=== PATIENT | female | born 1990 | race Caucasian/White ===

== ENCOUNTER → 2016-11-13 | Outpatient (CLI) | payer MEDICAID ==
[~2016-11-13] MED LIST: AUGM500T34 PO; CEFD1CAP8 PO; IBUP200C PO; MACR100C3 PO; MUCI600T34 PO; NICO21DI5 TD; NO HOME MEDS; No Home Meds; TYLE500T78 PO
== END ==
LOC: M OUTALCOH 13:12
PROVIDERS: ATTEND Psychiatry & Neurology Psychiatry
DX: F11.20 Opioid dependence, uncomplicated (principal); F12.20 Cannabis dependence, uncomplicated

== ENCOUNTER 2016-11-24 15:04 | Emergency (ER) | payer MEDICAID, OTHER ==
[~2016-11-24] VITALS: Ht 175.3 cm; Wt 64.9 kg
[2016-11-24 15:04] VITALS: BP 112/75
[2016-11-24] MEDS ORDERED: STRA80CA PO (15:13)
[2016-11-24] MEDS ORDERED: SERO200T PO (15:13)
[2016-11-24] MEDS ORDERED: EFFE75CA75 PO (15:13)
[2016-11-24] MEDS ORDERED: CYCL10TA PO (17:26)
[2016-11-24] MEDS ORDERED: CYCLOBENZAPRINE 10 MG TAB PO ONE (17:45)
== END 2016-11-24 17:43 | disposition home or self-care (01) ==
LOC: M ED 16:59
DX: S39.012A Strain of muscle, fascia and tendon of lower back, initial encounter (principal); X50.0XXA Overexertion from strenuous movement or load, initial encounter; Y92.89 Other specified places as the place of occurrence of the external cause; Y93.89 Activity, other specified; Y99.8 Other external cause status; B19.20 Unspecified viral hepatitis C without hepatic coma; F17.200 Nicotine dependence, unspecified, uncomplicated; Z91.030 Bee allergy status; Z79.899 Other long term (current) drug therapy

== ENCOUNTER 2016-11-26 16:00 | Outpatient (RCR) | payer MEDICAID ==
[~2016-11-26 16:00] MED LIST changes: +CYCL10TA PO; +EFFE75CA75 PO; +SERO200T PO; +STRA80CA PO
== END 2016-12-03 ==
LOC: M OUTALCOH 16:00
PROVIDERS: ATTEND Psychiatry & Neurology Psychiatry
DX: F11.20 Opioid dependence, uncomplicated (principal); F12.20 Cannabis dependence, uncomplicated

== ENCOUNTER 2017-09-07 15:18 | Emergency (ER) | payer MEDICAID, SELFPAY, OTHER ==
[2017-09-07 17:23] LABS: KETONE, URINE AUTO RFX TRACE mg/dL (NEGATIVE); LEUKOCYTE ESTERASE UR AUTO RFX NEGATIVE (NEGATIVE); MUCUS, URINE RFX SMALL (NEGATIVE); NITRITE, URINE AUTO RFX NEGATIVE (NEGATIVE); RBC, URINE AUTO RFX 1 /HPF (0-3); SPECIFIC GRAVITY UR AUTO RFX 1.012 (1.002-1.035); SQUAM EPITHELIAL CELL UR AURFX 2 /HPF (0-6); WBC, URINE AUTO RFX 0 /HPF (0-3)
[2017-09-07] MEDS: NORCO, ANEXSIA 5/325MG TABLET (HYDROcodone/ACETAMINOPHEN) PO (17:30)
[2017-09-07] MEDS: ONDANSETRON 4 MG ORAL DISINTEGRATING TAB (S0181) PO (17:30)
[2017-09-07] MEDS: FLUCONAZOLE 100 MG TAB PO (18:30)
[2017-09-07 19:04] LABS: CHLAMYDIA DNA AMPLIFICATION NEGATIVE (NEGATIVE); GC DNA AMPLIFICATION NEGATIVE (NEGATIVE)
== END 2017-09-07 18:41 | disposition home or self-care (01) ==
LOC: M ED 15:18
DX: N83.202 Unspecified ovarian cyst, left side (principal); B37.3 Candidiasis of vulva and vagina; B19.20 Unspecified viral hepatitis C without hepatic coma; F20.0 Paranoid schizophrenia; F17.210 Nicotine dependence, cigarettes, uncomplicated; Z91.030 Bee allergy status
CPT/HCPCS: 76856

== ENCOUNTER 2017-09-13 17:23 | Emergency (ER) | payer MEDICAID ==
[2017-09-13] MEDS: KETOROLAC 30 MG/ML VIAL (J1885) IM (18:04)
[2017-09-13] MEDS: traMADol 50 MG TAB (BULK 4 TAB ED) PO (20:34)
== END 2017-09-13 20:36 | disposition home or self-care (01) ==
LOC: M ED 17:23
DX: N83.292 Other ovarian cyst, left side (principal); F17.200 Nicotine dependence, unspecified, uncomplicated; R51 Headache; M54.5 Low back pain; Z86.19 Personal history of other infectious and parasitic diseases; F41.9 Anxiety disorder, unspecified; F32.9 Major depressive disorder, single episode, unspecified; F29 Unspecified psychosis not due to a substance or known physiological condition; F20.9 Schizophrenia, unspecified; Z91.030 Bee allergy status
CPT/HCPCS: J1885

== ENCOUNTER → 2017-11-16 | Outpatient (CLI) | payer MEDICAID | LOC: M OUTALCOH 11:00 | DX: Z13.9 Encounter for screening, unspecified (principal); F11.20 Opioid dependence, uncomplicated (principal) ==

== ENCOUNTER 2019-12-20 20:33 | Emergency (ER) | payer MEDICAID, SELFPAY ==
[~2019-12-20] VITALS: Ht 175.3 cm; Wt 63.6 kg
[~2019-12-20 20:33] MED LIST changes: +CYCL-707 PO; -CYCL10TA PO; +EFFE75CA2 PO; -EFFE75CA75 PO; +IBUP-1022 PO; -IBUP200C PO; +IBUP200C25 PO; -MACR100C3 PO; +MACR100C43 PO; -NICO21DI5 TD; +NICO21DI6 TD; +ULTR50TA8 PO
[2019-12-20] MEDS ORDERED: QUET200T2 PO (20:55)
[2019-12-20] MEDS ORDERED: BUPR15TASR PO (20:55)
[2019-12-20] MEDS ORDERED: TRAZ-257 PO (20:55)
[2019-12-20] MEDS ORDERED: NS 1,000 ML IV ONE (21:00)
[2019-12-20 21:30] VITALS: BP 110/80
[2019-12-20] MEDS ORDERED: ISOVUE-370 76% 100ML VIAL As Ordered ONE (22:06)
[2019-12-20 22:09] LABS: BASO # 0.1 10^3/uL (0.0-0.2); BASO % 1.4 % (0.0-1.0); EOS # 0.1 10^3/uL (0.0-0.5); EOS % 1.6 % (0.0-3.0); LYMPH # 1.3 10^3/uL (1.5-5.0); LYMPH % 26.2 % (24.0-44.0); MEAN CORPUSCULAR HEMOGLOBIN 32.4 pg (27.0-33.0); MEAN CORPUSCULAR HGB CONC 34.2 g/dl (32.0-36.5); MEAN CORPUSCULAR VOLUME 94.8 fl (80.0-96.0); MONO # 0.3 10^3/uL (0.0-0.8); MONO % 6.8 % (0.0-5.0); NEUTROPHILS # 3.2 10^3/uL (1.5-8.5); NEUTROPHILS % 63.8 % (36.0-66.0); PLATELET COUNT, AUTOMATED 144 10^3/uL (150-450); RED BLOOD COUNT 4.01 10^6/uL (4.00-5.40)
[2019-12-20 22:51] LABS: ACETAMINOPHEN LEVEL < 2.0 UG/ML (10.0-30.0); ALBUMIN 4.4 GM/DL (3.2-5.2); ALT/SGPT 12 U/L (12-78); BILIRUBIN,DIRECT 0.1 MG/DL (0.0-0.2); BILIRUBIN,TOTAL 0.4 MG/DL (0.2-1.0); ETHYL ALCOHOL (ETHANOL) < 0.003 % (0.000-0.010); SALICYLATE LEVEL < 1.7 MG/DL (5.0-30.0); TOTAL PROTEIN 7.9 GM/DL (6.4-8.2)
[2019-12-20 23:10] LABS: AMPHETAMINES LEVEL URINE NEGATIVE (NEGATIVE); BARBITURATES URINE NEGATIVE (NEGATIVE); BENZODIAZEPINES URINE NEGATIVE (NEGATIVE); CANNABINOIDS URINE NEGATIVE (NEGATIVE); COCAINE METABOLITE URINE NEGATIVE (NEGATIVE); METHADONE URINE NEGATIVE (NEGATIVE); OPIATES URINE NEGATIVE (NEGATIVE); PHENCYCLIDINE URINE NEGATIVE (NEGATIVE)
--- NOTE | 2019-12-21 09:03 | REP ---
Clinical: Altered mental status with confusion and disorientation . Comparison: None. Technique: Axial noncontrast images from the skull base to the vertex with coronal re-formations. Findings: The ventricles, sulci, and cisterns are normal in position and appearance. Seymour-white differentiation is maintained. No acute intracranial hemorrhage, mass/mass effect, pathology or trauma/injury. No evidence for acute infarction. No extra-axial fluid collection. Calvarium is intact. Paranasal sinuses and mastoid air cells are clear. Impression: Normal noncontrast head CT. No evidence for acute intracranial pathology or trauma/injury. Electronically Signed by Nelson Olsen MD 12/21/2019 08:54 A
--- NOTE | 2019-12-21 09:27 | REP ---
Clinical: Acute left lower quadrant pain. Technique: Axial contrast enhanced images from the lung bases to the pubic symphysis with coronal and sagittal re-formations using 100 ml Isovue 370 intravenous contrast material. Findings: Lung bases are clear. Visualized heart and pericardium normal. Liver, spleen, pancreas, bilateral adrenal glands and kidneys are normal. Evidence of prior cholecystectomy. The enteric system is without obstruction or acute inflammatory process. Normal terminal ileum and appendix identified in the right lower quadrant. Pelvis demonstrates normal bladder and age-appropriate uterus/adnexa. No ascites. No free air. No adenopathy. Surrounding musculoskeletal structures are grossly intact. Impression: No acute abdominopelvic pathology appreciated. Electronically Signed by Nelson Olsen MD 12/21/2019 09:19 A
== END 2019-12-21 00:33 | disposition home or self-care (01) ==
LOC: M ED 20:33
DX: R25.8 Other abnormal involuntary movements (principal); F32.9 Major depressive disorder, single episode, unspecified; F17.290 Nicotine dependence, other tobacco product, uncomplicated; Z91.030 Bee allergy status; Z79.899 Other long term (current) drug therapy
CPT/HCPCS: 70450; 74177; 80047; 80076; 80307; 81001; 84443; 84702; 85025; 93041; 94760; 96360; 99285; G0480; Q9967

== ENCOUNTER 2020-01-09 10:37 | Emergency (ER) | payer MEDICAID ==
[~2020-01-09] VITALS: Ht 175.3 cm; Wt 62.8 kg
[~2020-01-09 10:37] MED LIST changes: +BUPR15TASR PO; +QUET200T2 PO; +TRAZ-257 PO
[2020-01-09] MEDS ORDERED: ONDANSETRON 4MG/2ML VIAL IV ONE (11:15)
[2020-01-09] MEDS ORDERED: ACETAMINOPHEN 325 MG TAB PO ONE (11:15)
[2020-01-09] MEDS ORDERED: NS 1,000 ML IV ONE (11:15)
[2020-01-09 11:47] LABS: BASO # 0.1 10^3/uL (0.0-0.2); BASO % 1.4 % (0.0-1.0); EOS # 0.1 10^3/uL (0.0-0.5); EOS % 1.8 % (0.0-3.0); HEMATOCRIT 45.1 % (36.0-47.0); HEMOGLOBIN 15.1 g/dl (12.0-15.5); LYMPH # 2.2 10^3/uL (1.5-5.0); MEAN CORPUSCULAR HEMOGLOBIN 32.1 pg (27.0-33.0); MEAN CORPUSCULAR HGB CONC 33.5 g/dl (32.0-36.5); MEAN CORPUSCULAR VOLUME 95.8 fl (80.0-96.0); MONO # 0.3 10^3/uL (0.0-0.8); MONO % 6.9 % (0.0-5.0); NEUTROPHILS # 2.3 10^3/uL (1.5-8.5); NEUTROPHILS % 45.9 % (36.0-66.0); PLATELET COUNT, AUTOMATED 247 10^3/uL (150-450); RED BLOOD COUNT 4.71 10^6/uL (4.00-5.40)
[2020-01-09 12:13] LABS: ALT/SGPT 16 U/L (12-78); AMYLASE 61 U/L (25-115); BILIRUBIN,DIRECT 0.1 MG/DL (0.0-0.2); BILIRUBIN,TOTAL 0.6 MG/DL (0.2-1.0); BLOOD UREA NITROGEN 16 MG/DL (7-18); CALCIUM LEVEL 9.9 MG/DL (8.5-10.1); CARBON DIOXIDE LEVEL 27 MEQ/L (21-32); CHLORIDE LEVEL 106 MEQ/L (98-107); CREATININE FOR GFR 0.78 MG/DL (0.55-1.30); GLOMERULAR FILTRATION RATE > 60.0 (>60); GLUCOSE, FASTING 85 MG/DL (70-100); LIPASE 139 U/L (73-393); POTASSIUM SERUM 4.1 MEQ/L (3.5-5.1); SODIUM LEVEL 136 MEQ/L (136-145)
[2020-01-09] MEDS ORDERED: KETOROLAC 30 MG/ML 1ML VIAL IV ONE (13:15)
[2020-01-09] MEDS ORDERED: METOCLOPRAMIDE INJ 10MG/2ML VIAL (J2765 PER 1) IV ONE (14:45)
[2020-01-09] MEDS ORDERED: diphenhydrAMINE 50MG/ML VIAL (J1200) IV ONE (14:45)
[2020-01-09] MEDS ORDERED: KETO10TAB PO (16:04)
[2020-01-09] MEDS ORDERED: ONDA4TAB6 PO (16:04)
[2020-01-09 16:17] VITALS: BP 104/67
== END 2020-01-09 16:18 | disposition home or self-care (01) ==
LOC: M ED 10:37
DX: B34.9 Viral infection, unspecified (principal); R11.2 Nausea with vomiting, unspecified; R51 Headache; B19.20 Unspecified viral hepatitis C without hepatic coma; F20.9 Schizophrenia, unspecified; F17.200 Nicotine dependence, unspecified, uncomplicated; Z91.030 Bee allergy status
CPT/HCPCS: 80048; 80076; 81001; 82150; 83605; 83690; 84702; 85025; 87040; 87486; 87581; 87633; 87798; 96361; 96374; 96375; 99284; J1200; J1885; J2405; J2765

== ENCOUNTER 2020-08-23 09:14 | Emergency (ER) | payer MEDICAID, OTHER ==
[~2020-08-23] VITALS: Ht 175.3 cm; Wt 65.9 kg
[~2020-08-23 09:14] MED LIST changes: +KETO10TAB PO; +ONDA4TAB6 PO
[2020-08-23] MEDS ORDERED: IBUP-1114 PO (09:23)
[2020-08-23] MEDS ORDERED: ACET-683 PO (09:23)
--- OUTSIDE RECORDS SUMMARY | 2020-08-23 09:23 | CCD ---
Author Author [facility] Organization [facility] Address Unknown Phone Unavailable Care Team Providers Care Metal Drill Operator Name Role Phone JESSICA ESPINOSA Unavailable Unavailable Traci Sawyer Unavailable YAS, H EMILY CHRISTMAS TREE FARMER Unavailable Unavailable YAS, H EMILY CHRISTMAS TREE FARMER Unavailable Unavailable YAS, H EMILY CHRISTMAS TREE FARMER Unavailable Unavailable YAS, H EMILY CHRISTMAS TREE FARMER Unavailable Unavailable YAS, H EMILY CHRISTMAS TREE FARMER Unavailable Unavailable YAS, H EMILY CHRISTMAS TREE FARMER Unavailable Unavailable YAS, H EMILY CHRISTMAS TREE FARMER Unavailable Unavailable YAS, H EMILY CHRISTMAS TREE FARMER Unavailable Unavailable Re-disclosure Warning The records that you are about to access may contain information from federally-assisted alcohol or drug abuse programs. If such information is present, then the following federally mandated warning applies: This information has been disclosed to you from records protected by federal confidentiality rules (42 CFR part 2). The federal rules prohibit you from making any further disclosure of this information unless further disclosure is expressly permitted by the written consent of the person to whom it pertains or as otherwise permitted by 42 CFR part 2. A general authorization for the release of medical or other information is NOT sufficient for this purpose. The Federal rules restrict any use of the information to criminally investigate or prosecute any alcohol or drug abuse patient.The records that you are about to access may contain highly sensitive health information, the redisclosure of which is protected by Article 27-F of the [facility] Public Health law. If you continue you may have access to information: Regarding HIV / AIDS; Provided by facilities licensed or operated by the [facility] Office of Mental Health; or Provided by the [facility] Office for People With Developmental Disabilities. If such information is present, then the following [facility] mandated warning applies: This information has been disclosed to you from confidential records which are protected by state law. State law prohibits you from making any further disclosure of this information without the specific written consent of the person to whom it pertains, or as otherwise permitted by law. Any unauthorized further disclosure in violation of state law may result in a fine or [place] health care facility sentence or both. A general authorization for the release of medical or other information is NOT sufficient authorization for further disc losure. Family History Family Member Name Family Member Gender Family Member Status Date o f Status Description Data Source(s) Unknown Unknown Problem [facility] Encounters Encounter Providers Location Date Indications Data Source(s ) TEMP Forensic Telemed MM Diagnostic Eval New Pt Attender: GURJIT MONTES CHRISTMAS TREE FARMER [facility] 01/05/2020 10:00:00 AM EDT - 01/05/2020 10:00:00 AM EDT [facility] ([facility]) Attender: EMILY MONTES NP 01/05/2020 12:00:00 AM EDT [facility] ([facility]) TEMP Forensic Telemed [place] New Pt Attender: Traci Sawyer [facility] 01/02/2020 01:00:00 AM EDT - 01/02/2020 01:00:00 AM EDT [facility] ([facility]) Attender: Traci Sawyer 01/02/2020 12:00:00 AM EDT [facility] ([facility]) Outpatient 12/30/2019 05:07:00 AM EDT [facility] Imaging Outpatient Attender: JESSICA [facility] 12/13/2019 07:38:[address] [facility] Functional Status Medications Medication Brand Name Start Date Product Form Dose Route Admi nistrative Instructions Pharmacy Instructions Status Indications Reaction Description Data Source(s) 24 HR Bupropion Hydrochloride 150 MG Extended Release Oral T ablet BUPROPION HCL 01/05/2020 12:00:00 AM EDT tablet extended release 24 hr 60 TAKE ONE TABLET BY MOUTH TWICE A DAY TAKE ONE TABLET BY MOUTH TWICE A DAY SOLD: 01/10/2020 [facility] 24 HR Bupropion Hydrochloride 150 MG Extended Release Oral Tablet [Wellbutrin] Wellbutrin XL 01/05/2020 12:00:00 AM EDT 150 mg by mouth co mpleted [id number] Wellbutrin XL by mouth [id number] 01/05/2020 02/04/2020 twice a day 30 150 mg tablet extended release 24 hr 08303 [id number] Emily Montes [id number] Nurse Practitioner [facility] ([facility]) quetiapine 50 MG Oral Tablet [Seroquel] Seroquel 01/05/2020 12: 00:00 AM EDT 50 mg by mouth completed [id number] Seroquel by mouth [id number] 01/05/2020 02/04/2020 every morning 30 50 mg tablet 35331 [id number] Emily Montes [id number] Nurse Practitioner [facility] ([facility]) quetiapine 200 MG Oral Tablet [Seroquel] Seroquel 01/05/2020 12 :00:00 AM EDT 200 mg by mouth completed [id number] Seroquel by mouth [id number] 8 01/05/2020 02/04/2020 every morning 30 200 mg tablet [id number] Emily Montes [id number] Nurse Practitioner [facility] ([facility]) Insurance Providers Payer name Policy type / Coverage type Policy ID Covered constitution party ID Covered constitution party's relationship to romano Policy Romano Plan Information EMEDNY [id number] SP [id number] SELF PAY ONLY [id number] SP [id number] MEDICAID M [id number] S [id number] ANSI-Commercial [id number] ANSI-Commercial [id number] ANSI-Medicaid [id number] ANSI-Commercial [id number] ANSI-Medicaid [id number] ANSI-Commercial [id number] ANSI-Medicaid [id number] ANSI-Medicaid [id number] ANSI-Commercial [id number] ANSI-Commercial [id number] ANSI-Medicaid [id number] ANSI-Commercial [id number] ANSI-Commercial [id number] ANSI-Commercial [id number] ANSI-Medicaid [id number] MEDICAID [id number] SP [id number] UNHC COMMUNITY PLAN [facility] [id number] SP [id number] [facility] [id number] SP [id number] [facility] [id number] Patient [id number] POMCO [id number] Patient [id number] [facility] [id number] S [id number] [facility] [id number] S [id number] [facility] [id number] S [id number] MEDICAID [id number] S [id number] [facility] [id number] Patient [id number] [facility] Commercial Self MEDICAID [id number] Patient [id number] MEDICAID MISSING/PENDING PENDING Patient PENDING [facility] [id number] SP [id number] UNHC COMMUNITY PLAN MCDO [id number] SP [id number] MEDICAID W [id number] S [id number] [facility](MCAID) P [id number] S [id number] UNHC COMMUNITY PLAN MCDHMO [id number] SP [id number] BLUE CROSS BLANC[employer] PLAN [id number] SP [id number] HMO BLUE [id number] SP [id number] SELF PAY UNAVAILABLE UNAVAILA BLE HMO BLUE P [id number] S [id number] [place] [employer] P [id number] S [id number] [place] [employer] [id number] SP [id number] OTHER WORKERS COMPENSATION [id number] SP [id number] Problems, Conditions, and Diagnoses Code Display Name Description Problem Type Effective Dates Data Source(s) F43.8 Other 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0 Tobacco use Tobacco Use Disorder, Mild Condition 0 01/02/2020 12:00:00 AM EDT [facility] ([facility]) F11.10 Opioid abuse, uncomplicated Opioid Use Disorder, Mild Condition 01/02/2020 12:00:00 AM EDT [facility] ([facility]) F32.9 Major depressive disorder, single episod e, unspecified Unspecified depressive Disorder Condition 01/02/2020 12:00:00 AM EDT [facility] ([facility]) Surgeries/Procedures Procedure Description Date Indications Data Source(s) TEMP Forensic Telemed MM Diagnostic Eval New Pt 01/05/2020 12:00:00 AM EDT - 01/05/2020 12:00:00 AM EDT [facility] ([facility]) TEMP Forensic Telemed MM Diagnostic Eval New Pt 2019 12:00:00 AM EDT [facility] ([facility]) TEMP Forensic Telemed [place] New Pt 01/01 12:00:00 AM EDT - 01/02/2020 12:00:00 AM EDT [facility] ([facility]) TEMP Forensic Telemed [place] New Pt 01/02/2020 12:00:00 AM EDT [facility] ([facility]) Social History Code Duration Value Status Description Data Source(s ) Smoking 01/05/2020 12:00:00 AM EDT Unknown if ever smoked comp leted Unknown if ever smoked [facility] ([facility]) Smoking 01/02/2020 12:00:00 AM EDT Unknown if ever smoked comp leted Unknown if ever smoked [facility] ([facility]) Vital Signs ID Date Data Source UNK Name Value Range Interpretation Code Description Data Source(s) Diastolic blood pressure 0 mm[Hg] Normal (applies to non-numeric results) 0 mm[Hg] [facility] ([facility]) Systolic blood pressure 0 mm[Hg] Normal (applies t o non-numeric results) 0 mm[Hg] [facility] ([facility]) Body mass index (BMI) [Ratio] 0.00 kg/m2 No rmal (applies to non-numeric results) 0.00 kg/m2 [facility] ([facility]) Body weight Measured 0.00 lbs Normal (applies to n on-numeric results) 0.00 lbs [facility] ([facility]) Body height 0.00 in Normal (applies to non-numeric resu lts) 0.00 in [facility] ([facility])
--- OUTSIDE RECORDS SUMMARY | 2020-08-23 09:41 | CCD ---
Author Author [facility] Organization [facility] Address Unknown Phone Unavailable Care Team Providers Care Associate School Psychologist Name Role Phone JESSICA ESPINOSA Unavailable Unavailable Traci Sawyer Unavailable YAS, H EMILY SECURITY SYSTEM ANALYST Unavailable Unavailable YAS, H EMILY SECURITY SYSTEM ANALYST Unavailable Unavailable YAS, H EMILY SECURITY SYSTEM ANALYST Unavailable Unavailable YAS, H EMILY SECURITY SYSTEM ANALYST Unavailable Unavailable YAS, H EMILY SECURITY SYSTEM ANALYST Unavailable Unavailable YAS, H EMILY SECURITY SYSTEM ANALYST Unavailable Unavailable YAS, H EMILY SECURITY SYSTEM ANALYST Unavailable Unavailable YAS, H EMILY SECURITY SYSTEM ANALYST Unavailable Unavailable Re-disclosure Warning The records that [...] is protected by Article 27-F of the [facility] Public Health law. If you continue you may have access to information: Regarding HIV / AIDS; Provided by facilities licensed or operated by the [facility] Office of Mental Health; or Provided by the [facility] Office for People With Developmental Disabilities. If such information is present, then the following [facility] mandated warning applies: This information has [...] law may result in a fine or penitentiary sentence or both. A general authorization for [...] MM Diagnostic Eval New Pt Attender: GURJIT SORENSON SECURITY SYSTEM ANALYST [facility] 01/05/2020 10:00:00 AM EDT - 01/05/2020 10:00:00 AM EDT [facility] ([facility]) Attender: EMILY SORENSON NP 01/05/2020 12:00:00 AM EDT [facility] ([facility]) TEMP Forensic Telemed [place] New Pt Attender: Traci Sawyer [facility] 01/02/2020 01:00:00 AM EDT - 01/02/2020 01:00:00 AM EDT [facility] ([facility]) Attender: Traci Sawyer 01/02/2020 12:00:00 AM EDT [facility] ([facility]) Outpatient 12/30/2019 05:07:00 AM EDT [facility] Imaging Outpatient [facility] 12/13/2019 07:38:00 PM EDT [facility] Functional Status Medications Medication Brand Name Start [...] BY MOUTH TWICE A DAY SOLD: 01/10/2020 [facility] 24 HR Bupropion Hydrochloride 150 MG Extended Release Oral Tablet [Wellbutrin] Wellbutrin XL 01/05/2020 12:00:00 AM EDT 150 mg by mouth co mpleted [id number] Wellbutrin XL by mouth [id number] 01/05/2020 02/04/2020 twice a day 30 150 mg tablet extended release 24 hr [id number] Emily Sorenson [id number] Nurse Practitioner [facility] ([facility]) quetiapine 50 MG Oral Tablet [Seroquel] Seroquel 01/05/2020 12: 00:00 AM EDT 50 mg by mouth completed [id number] Seroquel by mouth [id number] 01/05/2020 02/04/2020 every morning 30 50 mg tablet [id number] Emily Sorenson [id number] Nurse Practitioner [facility] ([facility]) quetiapine 200 MG Oral Tablet [Seroquel] Seroquel 01/05/2020 12 :00:00 AM EDT 200 mg by mouth completed [id number] Seroquel by mouth C3828 8 01/05/2020 02/04/2020 every morning 30 200 mg tablet [id number] Emily Sorenson [id number] Nurse Practitioner [facility] ([facility]) Insurance Providers Payer name Policy type / Coverage type Policy ID Covered republican ID Covered republican's relationship to romano Policy Romano Plan Information EMEDNY [id number] SP [id number] SELF PAY ONLY [id number] SP [id number] MEDICAID M [id number] S [id number] ANSI-Commercial [id number] ANSI-Commercial [id number] ANSI-Medicaid [id number] ANSI-Commercial [id number] ANSI-Medicaid [id number] ANSI-Commercial [id number] ANSI-Medicaid [id number] ANSI-Medicaid [id number] ANSI-Commercial [id number] ANSI-Commercial [id number] ANSI-Medicaid [id number] ANSI-Commercial [id number] ANSI-Commercial [id number] ANSI-Commercial [id number] ANSI-Medicaid [id number] MEDICAID [id number] SP [id number] UN COMMUNITY PLAN [facility] [id number] SP [id number] [facility] [id number] SP [id number] [facility] [id number] Patient [id number] POMCO [id number] Patient [id number] [facility] [id number] S [id number] [facility] [id number] S [id number] [facility] [id number] S [id number] MEDICAID [id number] S [id number] [facility] [id number] Patient [id number] [facility] Commercial Self MEDICAID [id number] Patient [id number] MEDICAID MISSING/PENDING PENDING Patient PENDING [facility] [id number] SP [id number] UNHC COMMUNITY PLAN MCDO [id number] SP [id number] MEDICAID W [id number] S [id number] [facility](MCAID) P [id number] S [id number] UNHC COMMUNITY PLAN MCDHMO [id number] SP [id number] BLUE CROSS BLANC[employer] PLAN [id number] SP [id number] HMO BLUE [id number] SP [id number] SELF PAY UNAVAILABLE UNAVAILA BLE HMO BLUE P [id number] S [id number] [place] [employer] P [id number] S [id number] [place] [employer] [id number] SP [id number] OTHER WORKERS COMPENSATION [id number] SP [id number] Problems, Conditions, and Diagnoses Code Display Name Description Problem Type Effective Dates Data Source(s) F43.8 Other reactions to severe stress Other S pecified Trauma- and Stressor- Related Disorder Condition 01/05/2020 12:00:00 AM EDT [facility] ([facility]) F32.1 Major depressive disorder, single episod e, moderate Major Depressive Disorder, Single episode, Moderate Condition 01/05/2020 12:00:00 AM ED T [facility] ([facility]) F15.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, uncomplicate d Stimulant Use Disorder, Moderate: Other or unspecified stimulant Condition 01/05/2020 12:00:00 AM EDT [facility] ([facility]) F11.20 Opioid dependence, uncomplicated Opioid Use Disorder, Moderate Condition 01/05/2020 12:00:00 AM EDT [facility] ([facility]) Z72.0 Tobacco use Tobacco Use Disorder, Mild Condition 0 01/02/2020 12:00:00 AM EDT [facility] ([facility]) F11.10 Opioid abuse, uncomplicated Opioid Use Disorder, Mild Condition 01/02/2020 12:00:00 AM EDT [facility] ([facility]) F32.9 Major depressive disorder, single episod e, unspecified Unspecified depressive Disorder Condition 01/02/2020 12:00:00 AM EDT [facility] ([facility]) Surgeries/Procedures Procedure Description Date Indications Data Source(s) TEMP Forensic Telemed MM Diagnostic Eval New Pt 01/05/2020 12:00:00 AM EDT - 01/05/2020 12:00:00 AM EDT [facility] ([facility]) TEMP Forensic Telemed MM Diagnostic Eval New Pt 2019 12:00:00 AM EDT [facility] ([facility]) TEMP Forensic Telemed [place] New Pt 01/01 12:00:00 AM EDT - 01/02/2020 12:00:00 AM EDT [facility] ([facility]) TEMP Forensic Telemed DC [place] New Pt 01/02/2020 12:00:00 AM EDT [facility] ([facility]) Social History Code Duration Value Status Description Data Source(s ) Smoking 01/05/2020 12:00:00 AM EDT Unknown if ever smoked comp leted Unknown if ever smoked [facility] ([facility]) Smoking 01/02/2020 12:00:00 AM EDT Unknown if ever smoked comp leted Unknown if ever smoked [facility] ([facility]) Vital Signs ID Date Data Source UNK Name Value Range Interpretation Code Description Data Source(s) Diastolic blood pressure 0 mm[Hg] Normal (applies to non-numeric results) 0 mm[Hg] [facility] ([facility]) Systolic blood pressure 0 mm[Hg] Normal (applies t o non-numeric results) 0 mm[Hg] [facility] ([facility]) Body mass index (BMI) [Ratio] 0.00 kg/m2 No rmal (applies to non-numeric results) 0.00 kg/m2 [facility] ([facility]) Body weight Measured 0.00 lbs Normal (applies to n on-numeric results) 0.00 lbs [facility] ([facility]) Body height 0.00 in Normal (applies to non-numeric resu lts) 0.00 in [facility] ([facility])
[2020-08-23] MEDS ORDERED: ONDANSETRON 4 MG ORAL DISINTEGRATING TAB PO ONE (10:45)
[2020-08-23 10:49] LABS: BASO # 0.1 10^3/uL (0.0-0.2); BASO % 1.6 % (0.0-1.0); EOS # 0.1 10^3/uL (0.0-0.5); EOS % 1.8 % (0.0-3.0); HEMATOCRIT 41.8 % (36.0-47.0); HEMOGLOBIN 13.8 g/dl (12.0-15.5); LYMPH # 2.1 10^3/uL (1.5-5.0); LYMPH % 41.2 % (24.0-44.0); MEAN CORPUSCULAR HEMOGLOBIN 32.5 pg (27.0-33.0); MEAN CORPUSCULAR VOLUME 98.4 fl (80.0-96.0); MONO # 0.4 10^3/uL (0.0-0.8); MONO % 7.3 % (2.0-8.0); NEUTROPHILS # 2.4 10^3/uL (1.5-8.5); NEUTROPHILS % 47.9 % (36.0-66.0); PLATELET COUNT, AUTOMATED 213 10^3/uL (150-450); RED BLOOD COUNT 4.25 10^6/uL (4.00-5.40); WHITE BLOOD COUNT 5.1 10^3/uL (4.0-10.0)
--- NOTE | 2020-08-23 11:30 | REP ---
INDICATION: dub, pelvic pain COMPARISON: 09/13/2017 TECHNIQUE: Transabdominal pelvic ultrasound followed by transvaginal examination for better evaluation of the endometrium and adnexa with color Doppler evaluation of the ovaries. FINDINGS: Bladder is unremarkable and measures 10.3 x 5.5 x 7.5 cm. Normal anteverted uterus measures 7.3 x 3.5 x 4.7 cm. The endometrial complex measures 4.0 mm thickness. No discrete uterine or endometrial abnormalities are appreciated. Bilateral ovaries are normal in appearance and vascularity without evidence for torsion. Right ovary measures 2.6 x 1.6 x 2.8 cm; R I = 0.63. Left ovary measures 1.6 x 1.4 x 1.8 cm; R I = 0.68. No pelvic fluid or adnexal mass lesion IMPRESSION: Normal pelvic ultrasound. <Electronically signed by Nelson Olsen > 08/23/20 [id number]
[2020-08-23 12:11] LABS: CHLAMYDIA DNA AMPLIFICATION NEGATIVE (NEGATIVE); GC DNA AMPLIFICATION NEGATIVE (NEGATIVE)
[2020-08-23 12:28] VITALS: BP 100/55
== END 2020-08-23 12:29 | disposition home or self-care (01) ==
LOC: M ED 09:14
DX: N93.9 Abnormal uterine and vaginal bleeding, unspecified (principal); R10.2 Pelvic and perineal pain; R11.0 Nausea
CPT/HCPCS: 36415; 76830; 76856; 84702; 85025; 87210; 87491; 87591; 93976; 99283; Q0162

== ENCOUNTER 2020-09-22 12:46 | Emergency (ER) | payer OTHER ==
[~2020-09-22] VITALS: Ht 175.3 cm; Wt 68.9 kg
[~2020-09-22 12:46] MED LIST changes: +ACET-683 PO; +IBUP-1114 PO
[2020-09-22 14:31] VITALS: BP 128/72
== END 2020-09-22 14:33 | disposition home or self-care (01) ==
LOC: M ED 12:46
DX: Z20.828 Contact with and (suspected) exposure to other viral communicable diseases (principal); J02.9 Acute pharyngitis, unspecified; F17.200 Nicotine dependence, unspecified, uncomplicated
CPT/HCPCS: 87880; 99284; U0003

== ENCOUNTER 2020-11-22 10:31 | Emergency (ER) | payer OTHER, SELFPAY ==
[~2020-11-22] VITALS: Ht 175.3 cm; Wt 71.2 kg
[2020-11-22] MEDS ORDERED: IBUP200C33 PO (10:38)
[2020-11-22 11:55] LABS: BASO # 0.1 10^3/uL (0.0-0.2); BASO % 1.2 % (0.0-1.0); EOS # 0.1 10^3/uL (0.0-0.5); EOS % 1.6 % (0.0-3.0); HEMATOCRIT 43.6 % (36.0-47.0); HEMOGLOBIN 14.5 g/dl (12.0-15.5); LYMPH # 1.7 10^3/uL (1.5-5.0); LYMPH % 34.3 % (24.0-44.0); MEAN CORPUSCULAR HEMOGLOBIN 32.1 pg (27.0-33.0); MEAN CORPUSCULAR HGB CONC 33.3 g/dl (32.0-36.5); MEAN CORPUSCULAR VOLUME 96.5 fl (80.0-96.0); MONO # 0.4 10^3/uL (0.0-0.8); MONO % 8.3 % (2.0-8.0); NEUTROPHILS # 2.8 10^3/uL (1.5-8.5); NEUTROPHILS % 54.2 % (36.0-66.0); PLATELET COUNT, AUTOMATED 216 10^3/uL (150-450); RED BLOOD COUNT 4.52 10^6/uL (4.00-5.40); WHITE BLOOD COUNT 5.1 10^3/uL (4.0-10.0)
[2020-11-22 12:29] LABS: BILIRUBIN,DIRECT 0.1 MG/DL (0.0-0.2); BILIRUBIN,TOTAL 0.4 MG/DL (0.2-1.0); TOTAL PROTEIN 7.6 GM/DL (6.4-8.2)
--- NOTE | 2020-11-22 12:49 | REP ---
INDICATION: L flank pain hematuria COMPARISON: 12/20/2019. TECHNIQUE: CT Scan of the abdomen and pelvis was performed without intravenous contrast. Sagittal and coronal reconstruction images performed. FINDINGS: Lung bases: Unremarkable. Liver: Grossly unremarkable. Gallbladder: Prior cholecystectomy. Spleen: Grossly unremarkable. Adrenals: Normal. Pancreas: Grossly unremarkable.. Kidneys: No hydronephrosis or nephrolithiasis. Ureters demonstrate no dilatation or calculus. Small and large bowel: Grossly unremarkable. Free fluid: None. Abdominal aorta: No aneurysm. Adenopathy: None. Appendix: Not inflamed. Osseous structures: There is unilateral spondylolysis of L5 on the right, as well as spina bifida occulta of L5. There is no spondylolisthesis. Pelvis: No mass. No bladder calculus seen. IMPRESSION: No acute abnormalities in the abdomen and pelvis. <Electronically signed by Paresh Seymour > 11/22/20 [id number]
[2020-11-22 13:24] VITALS: BP 122/68
[2020-11-22 13:33] LABS: CHLAMYDIA DNA AMPLIFICATION NEGATIVE (NEGATIVE); GC DNA AMPLIFICATION NEGATIVE (NEGATIVE)
== END 2020-11-22 13:25 | disposition home or self-care (01) ==
LOC: M ED 10:31
DX: N93.8 Other specified abnormal uterine and vaginal bleeding (principal); Z86.19 Personal history of other infectious and parasitic diseases; F17.200 Nicotine dependence, unspecified, uncomplicated; Z91.030 Bee allergy status

== ENCOUNTER 2020-12-11 16:39 | Emergency (ER) | payer OTHER ==
[~2020-12-11] VITALS: Ht 175.3 cm; Wt 79.5 kg
[~2020-12-11 16:39] MED LIST changes: +IBUP200C33 PO
[2020-12-11 16:45] VITALS: BP 120/76
== END 2020-12-11 19:17 | disposition left against medical advice (07) ==
LOC: M ED 16:39
DX: Z53.21 Procedure and treatment not carried out due to patient leaving prior to being seen by health care provider (principal)

== ENCOUNTER 2021-02-22 02:24 | Emergency (ER) | payer OTHER ==
[~2021-02-22] VITALS: Ht 175.3 cm; Wt 75.0 kg
[2021-02-22 02:58] LABS: HEMATOCRIT 41.7 % (36.0-47.0); HEMOGLOBIN 14.5 g/dl (12.0-15.5); MEAN CORPUSCULAR HEMOGLOBIN 32.2 pg (27.0-33.0); MEAN CORPUSCULAR HGB CONC 34.8 g/dl (32.0-36.5); MEAN CORPUSCULAR VOLUME 92.7 fl (80.0-96.0); PLATELET COUNT, AUTOMATED 229 10^3/uL (150-450); WHITE BLOOD COUNT 7.5 10^3/uL (4.0-10.0)
[2021-02-22 03:26] LABS: AMPHETAMINES LEVEL URINE NEGATIVE (NEGATIVE); BARBITURATES URINE NEGATIVE (NEGATIVE); BENZODIAZEPINES URINE NEGATIVE (NEGATIVE); CANNABINOIDS URINE NEGATIVE (NEGATIVE); COCAINE METABOLITE URINE NEGATIVE (NEGATIVE); METHADONE URINE NEGATIVE (NEGATIVE); OPIATES URINE NEGATIVE (NEGATIVE); PHENCYCLIDINE URINE NEGATIVE (NEGATIVE)
[2021-02-22 03:33] LABS: HCG, SERUM QUALITATIVE NEGATIVE (NEGATIVE)
[2021-02-22 03:36] LABS: ACETAMINOPHEN LEVEL < 2.0 UG/ML (10.0-30.0); ALBUMIN 4.4 GM/DL (3.2-5.2); ALT/SGPT 27 U/L (12-78); BILIRUBIN,DIRECT 0.1 MG/DL (0.0-0.2); BILIRUBIN,TOTAL 0.4 MG/DL (0.2-1.0); BLOOD UREA NITROGEN 9 MG/DL (7-18); CALCIUM LEVEL 8.3 MG/DL (8.5-10.1); CARBON DIOXIDE LEVEL 23 MEQ/L (21-32); CHLORIDE LEVEL 111 MEQ/L (98-107); CREATININE FOR GFR 0.75 MG/DL (0.55-1.30); ETHYL ALCOHOL (ETHANOL) 0.221 % (0.000-0.010); GLOMERULAR FILTRATION RATE > 60.0 (>60); GLUCOSE, FASTING 88 MG/DL (70-100); POTASSIUM SERUM 3.5 MEQ/L (3.5-5.1); SALICYLATE LEVEL 3.3 MG/DL (5.0-30.0); SODIUM LEVEL 140 MEQ/L (136-145); TOTAL PROTEIN 8.3 GM/DL (6.4-8.2)
[2021-02-22] MEDS ORDERED: LORazepam 2 MG TAB PO PRN (06:00)
[2021-02-22] MEDS ORDERED: FOLIC ACID 1 MG TAB PO SCH (09:00)
[2021-02-22] MEDS ORDERED: MULTIVITAMINS/MINERALS THERAP 1 TAB PO SCH (09:00)
[2021-02-22] MEDS ORDERED: THIAMINE 100 MG TAB PO SCH (09:00)
--- NOTE | 2021-02-22 09:17 | REP ---
INDICATION: right COMPARISON: None. TECHNIQUE: Four views right hand. FINDINGS: There is no evidence of acute fracture, dislocation, or intrinsic bone disease. IMPRESSION: No fracture or dislocation. <Electronically signed by Paresh Seymour > 02/22/21 [id number]
[2021-02-22 14:05] VITALS: BP 125/83
--- NOTE | 2021-02-22 15:34 | MHCRPDOC ---
[facility] Consultation Consultation DATE OF CONSULTATION: 02/22/21 CONSULTATION REQUESTED BY: ED BHU Communicated with PSA patient was intoxicated and made vague suicidal statements, upon recovery from intoxication denied suicidal ideation, intent, plan, collateral obtained from partner, has appointment for evaluation within 7 days, safety planning was done. Does not meet criteria for inpatient admission. See PSA note for details. Vital Signs Vital Signs Date Time Temp Pulse Resp B/P (MAP) Pulse Ox O2 Delivery O2 Flow Rate FiO2 02/22/21 14:05 98.8 97 18 125/83 (97) 99 Room Air Laboratory Data 24H Labs Laboratory Tests 2 02/22/21 02:40: Nucleated Red Blood Cells % (auto) 0.0, Anion Gap 6L, Glomerular Filtration Rate > 60.0, Calcium Level 8.3L, Total Bilirubin 0.4, Direct Bilirubin 0.1, Aspartate Amino Transf (AST/SGOT) 22, Alanine Aminotransferase (ALT/SGPT) 27, Alkaline Phosphatase 64, Total Protein 8.3H, Albumin 4.4, Albumin/Globulin Ratio 1.1L, Thyroid Stimulating Hormone (TSH) 2.210, Human Chorionic Gonadotropin, Qual NEGATIVE, Salicylates Level 3.3L, Acetaminophen Level < 2.0L, Ethyl Alcohol Level 0.221H 02/22/21 02:42: Urine Opiates Screen NEGATIVE, Urine Methadone Screen NEGATIVE, Urine Barbiturates Screen NEGATIVE, Urine Phencyclidine Screen NEGATIVE, Urine Amphetamines Screen NEGATIVE, Urine Benzodiazepines Screen NEGATIVE, Urine Cocaine Metabolite Screen NEGATIVE, Urine Cannabinoids Screen NEGATIVE Home Medications Current Medications Current Medications Medications (Trade) Dose Ordered Sig/Danish Route PRN Reason Start Time Stop Time Status Last Admin Dose Admin Folic Acid (Folic Acid) 1 mg DAILY PO 02/22/21 09:00 02/22/21 14:10 DC 02/22/21 08:36 Lorazepam (Ativan) 2 mg ASDIRECTED PRN PO SEE PROTOCOL 02/22/21 06:00 02/22/21 14:10 DC Multivitamins (Theragram-M) 1 tab DAILY PO 02/22/21 09:00 02/22/21 14:10 DC 02/22/21 08:36 Thiamine HCl (Thiamine HCl) 100 mg BID PO 02/22/21 09:00 02/22/21 14:10 DC 02/22/21 08:36 No Active Prescriptions or Reported Meds Allergies Coded Allergies: bee pollen (Verified Allergy, Severe, CANT BREATH, 01/09/20) BERNICE RAMOS MD Feb 22, 2021 15:34
== END 2021-02-22 14:10 | disposition home or self-care (01) ==
LOC: M ED 02:24
DX: F43.0 Acute stress reaction (principal); F10.129 Alcohol abuse with intoxication, unspecified; F32.9 Major depressive disorder, single episode, unspecified; F17.200 Nicotine dependence, unspecified, uncomplicated; Z91.030 Bee allergy status

== ENCOUNTER 2021-06-03 10:22 | Emergency (ER) | payer OTHER ==
[~2021-06-03] VITALS: Ht 177.8 cm; Wt 73.1 kg
[~2021-06-03 10:22] MED LIST changes: -CEFD1CAP8 PO; +CEFD300C41 PO
[2021-06-03] MEDS ORDERED: BENZ200C70 PO (12:51)
[2021-06-03] MEDS ORDERED: AFRI0.058 (12:51)
[2021-06-03 13:32] VITALS: BP 119/63
== END 2021-06-03 13:33 | disposition home or self-care (01) ==
LOC: M ED 10:22
DX: J06.9 Acute upper respiratory infection, unspecified (principal); B34.8 Other viral infections of unspecified site; Z91.030 Bee allergy status; F17.210 Nicotine dependence, cigarettes, uncomplicated

== ENCOUNTER 2021-07-24 17:01 | Emergency (ER) | payer OTHER ==
[~2021-07-24] VITALS: Ht 175.3 cm; Wt 73.1 kg
[~2021-07-24 17:01] MED LIST changes: +AFRI0.058; +BENZ200C70 PO
[2021-07-24 17:02] VITALS: BP 137/86
[2021-07-24] MEDS ORDERED: NAPR220C14 PO (17:19)
[2021-07-24] MEDS ORDERED: KETOROLAC 30 MG/ML 1ML VIAL IV ONE (18:50)
== END 2021-07-24 19:21 | disposition left against medical advice (07) ==
LOC: M ED 17:01
DX: R50.9 Fever, unspecified (principal); R19.7 Diarrhea, unspecified; R05.9 Cough, unspecified; R53.83 Other fatigue; Z53.9 Procedure and treatment not carried out, unspecified reason

== ENCOUNTER 2021-12-05 16:40 | Emergency (ER) | payer OTHER ==
[~2021-12-05] VITALS: Ht 177.8 cm; Wt 68.6 kg
[~2021-12-05 16:40] MED LIST changes: -AFRI0.058; +NAPR220C14 PO; +OXYM15SP2
[2021-12-05] MEDS ORDERED: ACET-683 PO (17:02)
[2021-12-05 21:17] VITALS: BP 115/71
== END 2021-12-06 00:04 | disposition left against medical advice (07) ==
LOC: M ED 16:40
DX: Z53.21 Procedure and treatment not carried out due to patient leaving prior to being seen by health care provider (principal)

== ENCOUNTER 2022-02-27 13:50 | Emergency (ER) | payer MEDICAID, OTHER, SELFPAY ==
[~2022-02-27] VITALS: Ht 175.3 cm; Wt 60.9 kg
[2022-02-27] MEDS ORDERED: IBUP200T46 PO (14:08)
[2022-02-27] MEDS ORDERED: KETOROLAC 30 MG/ML 1ML VIAL IV ONE (15:05)
[2022-02-27] MEDS ORDERED: NS 1,000 ML IV ONE (15:05)
[2022-02-27] MEDS ORDERED: ONDANSETRON 4MG 2ML VIAL IV ONE (15:05)
[2022-02-27] MEDS: GASTROGRAFIN SOLUTION 30ML PO SCH ×2 (15:45→17:55)
[2022-02-27 16:07] LABS: BASO # 0.1 10^3/uL (0.0-0.2); EOS # 0.1 10^3/uL (0.0-0.5); EOS % 0.7 % (0.0-3.0); HEMATOCRIT 41.7 % (36.0-47.0); HEMOGLOBIN 14.5 g/dl (12.0-15.5); LYMPH % 41.5 % (24.0-44.0); MEAN CORPUSCULAR HEMOGLOBIN 31.7 pg (27.0-33.0); MEAN CORPUSCULAR HGB CONC 34.8 g/dl (32.0-36.5); MEAN CORPUSCULAR VOLUME 91.2 fl (80.0-96.0); MONO # 0.5 10^3/uL (0.0-0.8); MONO % 6.8 % (2.0-8.0); NEUTROPHILS # 3.6 10^3/uL (1.5-8.5); NEUTROPHILS % 49.7 % (36.0-66.0); PLATELET COUNT, AUTOMATED 208 10^3/uL (150-450); RED BLOOD COUNT 4.57 10^6/uL (4.00-5.40); WHITE BLOOD COUNT 7.2 10^3/uL (4.0-10.0)
[2022-02-27 16:24] LABS: BACTERIA, URINE SMALL AMOUNT; HYALINE CAST, URINE NONE SEEN /lpf (0-1); RBC, URINE NONE SEEN /hpf (0-3); SQUAMOUS EPITHELIAL CELL URINE SMALL AMOUNT /hpf (SMALL AMT)
[2022-02-27 16:25] LABS: HCG, SERUM QUALITATIVE NEGATIVE (NEGATIVE)
[2022-02-27] MEDS ORDERED: METOCLOPRAMIDE INJ 10MG/2ML VIAL (J2765 PER 1) IV ONE (16:35)
[2022-02-27 16:39] LABS: ALBUMIN 4.5 GM/DL (3.2-5.2); ALT/SGPT 12 U/L (12-78); BILIRUBIN,TOTAL 0.7 MG/DL (0.2-1.0); BLOOD UREA NITROGEN 11 MG/DL (7-18); CALCIUM LEVEL 9.7 MG/DL (8.5-10.1); CARBON DIOXIDE LEVEL 21 MEQ/L (21-32); CHLORIDE LEVEL 109 MEQ/L (98-107); CREATININE FOR GFR 0.74 MG/DL (0.55-1.30); GLOMERULAR FILTRATION RATE > 60.0 (>60); GLUCOSE, FASTING 85 MG/DL (70-100); LIPASE 130 U/L (73-393); SODIUM LEVEL 137 MEQ/L (136-145); TOTAL PROTEIN 8.2 GM/DL (6.4-8.2)
[2022-02-27 17:06] LABS: RSV AMPLIFICATION NEGATIVE (NEGATIVE)
[2022-02-27] MEDS ORDERED: ISOVUE-370 76% 100ML VIAL As Ordered ONE (17:59)
[2022-02-27] MEDS ORDERED: ONDA4TAB6 PO (18:40)
[2022-02-27 18:53] VITALS: BP 115/58
== END 2022-02-27 18:59 | disposition home or self-care (01) ==
LOC: M ED 15:36
DX: R10.31 Right lower quadrant pain (principal); F17.200 Nicotine dependence, unspecified, uncomplicated; F31.9 Bipolar disorder, unspecified; F32.A Depression, unspecified; B18.2 Chronic viral hepatitis C; Z79.899 Other long term (current) drug therapy; Z91.030 Bee allergy status
CPT/HCPCS: 74177; 80047; 80053; 81000; 81015; 83605; 83690; 84702; 84703; 85025; 87040; 87631; 96374; 96375; 99284; J1885; J2405; J2765; Q9963; Q9967

== ENCOUNTER 2022-04-22 00:39 | Emergency (ER) | payer OTHER, SELFPAY ==
[~2022-04-22] VITALS: Ht 180.3 cm; Wt 63.6 kg
[~2022-04-22 00:39] MED LIST changes: +IBUP200T46 PO
[2022-04-22 01:31] LABS: HEMATOCRIT 41.7 % (36.0-47.0); HEMOGLOBIN 14.1 g/dl (12.0-15.5); MEAN CORPUSCULAR HEMOGLOBIN 32.1 pg (27.0-33.0); MEAN CORPUSCULAR HGB CONC 33.8 g/dl (32.0-36.5); PLATELET COUNT, AUTOMATED 207 10^3/uL (150-450); RED BLOOD COUNT 4.39 10^6/uL (4.00-5.40); WHITE BLOOD COUNT 6.1 10^3/uL (4.0-10.0)
[2022-04-22 02:02] LABS: RSV AMPLIFICATION NEGATIVE (NEGATIVE)
[2022-04-22 02:32] LABS: AMPHETAMINES LEVEL URINE NEGATIVE (NEGATIVE); BARBITURATES URINE NEGATIVE (NEGATIVE); BENZODIAZEPINES URINE NEGATIVE (NEGATIVE); CANNABINOIDS URINE POSITIVE (NEGATIVE); COCAINE METABOLITE URINE NEGATIVE (NEGATIVE); METHADONE URINE NEGATIVE (NEGATIVE); OPIATES URINE NEGATIVE (NEGATIVE); PHENCYCLIDINE URINE NEGATIVE (NEGATIVE)
[2022-04-22 02:44] LABS: ACETAMINOPHEN LEVEL < 2.0 UG/ML (10.0-30.0); ALT/SGPT 15 U/L (12-78); BILIRUBIN,DIRECT < 0.1 MG/DL (0.0-0.2); BILIRUBIN,TOTAL 0.2 MG/DL (0.2-1.0); BLOOD UREA NITROGEN 8 MG/DL (7-18); CALCIUM LEVEL 8.8 MG/DL (8.5-10.1); CARBON DIOXIDE LEVEL 23 MEQ/L (21-32); CHLORIDE LEVEL 110 MEQ/L (98-107); CREATININE FOR GFR 0.66 MG/DL (0.55-1.30); ETHYL ALCOHOL (ETHANOL) 0.165 % (0.000-0.010); GLOMERULAR FILTRATION RATE > 60.0 (>60); GLUCOSE, FASTING 103 MG/DL (70-100); POTASSIUM SERUM 3.8 MEQ/L (3.5-5.1); SALICYLATE LEVEL 3.9 MG/DL (5.0-30.0); SODIUM LEVEL 138 MEQ/L (136-145)
[2022-04-22] MEDS ORDERED: ACETAMINOPHEN 325 MG TAB PO ONE (07:25)
[2022-04-22 10:20] VITALS: BP 98/58
== END 2022-04-22 10:32 | disposition home or self-care (01) ==
LOC: M ED 00:39
DX: F10.129 Alcohol abuse with intoxication, unspecified (principal); Z91.030 Bee allergy status

== ENCOUNTER 2022-08-05 11:19 | Emergency (ER) | payer OTHER ==
[~2022-08-05] VITALS: Ht 175.3 cm; Wt 63.6 kg
[2022-08-05 13:19] VITALS: BP 97/66
== END 2022-08-05 13:21 | disposition home or self-care (01) ==
LOC: M ED 12:10
DX: J02.9 Acute pharyngitis, unspecified (principal); F20.9 Schizophrenia, unspecified; F31.9 Bipolar disorder, unspecified; M54.50 Low back pain, unspecified; F17.200 Nicotine dependence, unspecified, uncomplicated; Z91.030 Bee allergy status

== ENCOUNTER 2023-03-13 01:27 | Inpatient (IN) | payer MEDICAID, OTHER, SELFPAY ==
[~2023-03-13] VITALS: Ht 175.3 cm; Wt 61.5 kg
[2023-03-13 02:27] LABS: AMPHETAMINES LEVEL URINE NEGATIVE (NEGATIVE); BARBITURATES URINE NEGATIVE (NEGATIVE); BENZODIAZEPINES URINE NEGATIVE (NEGATIVE); COCAINE METABOLITE URINE NEGATIVE (NEGATIVE); METHADONE URINE NEGATIVE (NEGATIVE); OPIATES URINE NEGATIVE (NEGATIVE); PHENCYCLIDINE URINE NEGATIVE (NEGATIVE)
[2023-03-13 02:29] LABS: CANNABINOIDS URINE POSITIVE (NEGATIVE)
[2023-03-13 02:33] LABS: ETHYL ALCOHOL (ETHANOL) 0.156 % (0.000-0.010)
[2023-03-13 02:35] LABS: ACETAMINOPHEN LEVEL < 2.0 UG/ML (10.0-20.0); ALBUMIN 4.1 G/DL (3.2-5.2); ALKALINE PHOSPHATASE 82 U/L (46-116); ALT/SGPT 11 U/L (7.0-40); AST/SGOT 9 U/L (<34); BILIRUBIN,DIRECT 0.3 MG/DL (<0.4); BILIRUBIN,TOTAL 0.8 MG/DL (0.3-1.2); BLOOD UREA NITROGEN 8 MG/DL (9-23); CALCIUM LEVEL 9.5 MG/DL (8.5-10.1); CARBON DIOXIDE LEVEL 22 MMOL/L (20-31); CHLORIDE LEVEL 107 MMOL/L (98-107); CREATININE FOR GFR 0.64 MG/DL (0.55-1.30); GLOMERULAR FILTRATION RATE > 60.0 (>60); GLUCOSE, FASTING 89 MG/DL (60-100); POTASSIUM SERUM 4.1 MMOL/L (3.5-5.1); SALICYLATE LEVEL < 3.0 MG/DL (<30); SODIUM LEVEL 137 MMOL/L (136-145); TOTAL PROTEIN 7.9 G/DL (5.7-8.2)
[2023-03-13 02:37] LABS: THYROID STIMULATING HORMONE 2.097 uIU/ML (0.55-4.78)
[2023-03-13 02:54] LABS: HEMATOCRIT 43.6 % (36.0-47.0); HEMOGLOBIN 14.7 g/dl (12.0-15.5); MEAN CORPUSCULAR HEMOGLOBIN 31.7 pg (27.0-33.0); MEAN CORPUSCULAR HGB CONC 33.7 g/dl (32.0-36.5); PLATELET COUNT, AUTOMATED 270 10^3/uL (150-450); RED BLOOD COUNT 4.64 10^6/uL (4.00-5.40); WHITE BLOOD COUNT 9.4 10^3/uL (4.0-10.0)
[2023-03-13 07:25] LABS: HCG, SERUM QUALITATIVE NEGATIVE (NEGATIVE)
[2023-03-13] MEDS ORDERED: HOME MED LIST COMPLETE! XX SCH (18:55)
[2023-03-13 18:59] VITALS: BP 110/57; TEMP 98.9; O2SAT 99
[2023-03-13 19:57] VITALS: BP 138/85
[2023-03-13] MEDS: LORazepam 2 MG TAB PO PRN (20:46)
[2023-03-13] MEDS: THIAMINE 100 MG TAB PO SCH (20:46)
[2023-03-13 21:44] VITALS: BP 103/63
[2023-03-14] VITALS (8 sets, daily range): BP systolic 102–117; BP diastolic 58–71; TEMP 97.7; O2SAT 97
[2023-03-14] MEDS: LORazepam 2 MG TAB PO PRN (02:12)
[2023-03-14] MEDS: FOLIC ACID 1MG TAB PO SCH (09:12)
[2023-03-14] MEDS: MULTIVITAMINS/MINERALS THERAP 1 TAB PO SCH (09:12)
[2023-03-14] MEDS: THIAMINE 100 MG TAB PO SCH ×2 (09:12→20:28)
[2023-03-14] MEDS ORDERED: MAALOX 30 ML SUSP *UDC PO PRN (13:00)
[2023-03-14] MEDS ORDERED: IBUPROFEN 400MG TAB PO PRN (13:00)
[2023-03-14] MEDS ORDERED: ACETAMINOPHEN TAB 650MG DOSE (2X325MG) PO PRN (13:00)
[2023-03-14] MEDS ORDERED: MOM 30ML SUSPENSION UDC PO PRN (13:00)
[2023-03-14] MEDS: diphenhydrAMINE 25MG CAP PO PRN (15:51)
[2023-03-14] MEDS ORDERED: LORazepam 2 MG TAB PO STA (17:02)
[2023-03-14] MEDS ORDERED: diphenhydrAMINE 50MG CAP PO STA (17:02)
[2023-03-14] MEDS: traZODone 50 MG TAB PO PRN (20:28)
[2023-03-14] MEDS: NICOTINE 14 MG/24 HR TRANSDERMAL TD SCH (20:30)
[2023-03-15 05:48] VITALS: BP 113/57; TEMP 97.8; O2SAT 96
[2023-03-15] MEDS: MULTIVITAMINS/MINERALS THERAP 1 TAB PO SCH (09:48)
[2023-03-15] MEDS: THIAMINE 100 MG TAB PO SCH ×2 (09:48→20:15)
[2023-03-15] MEDS: FOLIC ACID 1MG TAB PO SCH (09:48)
[2023-03-15] MEDS: NICOTINE 14 MG/24 HR TRANSDERMAL TD SCH (09:50)
[2023-03-15 10:16] VITALS: BP 117/71
[2023-03-15] MEDS: VENLAFAXINE **XR** 75MG CAPSULE PO SCH (12:05)
[2023-03-15] MEDS: DIVALPROEX 250MG *ER* TAB PO SCH ×2 (12:05→20:14)
[2023-03-15 18:00] VITALS: BP 117/72; TEMP 97.6
[2023-03-15 20:00] VITALS: BP 110/60
[2023-03-15] MEDS: traZODone 50 MG TAB PO PRN (20:14)
[2023-03-16 06:31] VITALS: BP 94/55; TEMP 98.4; O2SAT 97
[2023-03-16] MEDS: DIVALPROEX 250MG *ER* TAB PO SCH ×2 (08:59→20:01)
[2023-03-16] MEDS: THIAMINE 100 MG TAB PO SCH (08:59)
[2023-03-16] MEDS: FOLIC ACID 1MG TAB PO SCH (08:59)
[2023-03-16] MEDS: NICOTINE 14 MG/24 HR TRANSDERMAL TD SCH (08:59)
[2023-03-16] MEDS: MULTIVITAMINS/MINERALS THERAP 1 TAB PO SCH (08:59)
[2023-03-16] MEDS: VENLAFAXINE **XR** 75MG CAPSULE PO SCH (08:59)
[2023-03-16] MEDS: NALTREXONE 50 MG TAB PO SCH (10:05)
[2023-03-16 12:15] VITALS: BP 117/68
[2023-03-16 12:25] VITALS: BP 117/68; TEMP 96.3; O2SAT 97
[2023-03-16] MEDS: diphenhydrAMINE 25MG CAP PO PRN (12:28)
[2023-03-16 16:13] VITALS: BP 100/70; TEMP 97.9; O2SAT 98
[2023-03-16] MEDS: traZODone 50 MG TAB PO PRN (20:01)
[2023-03-17 06:00] VITALS: BP 97/58
[2023-03-17 06:38] VITALS: BP 97/58; TEMP 98.6; O2SAT 98
[2023-03-17] MEDS: NALTREXONE 50 MG TAB PO SCH (08:53)
[2023-03-17] MEDS: VENLAFAXINE **XR** 75MG CAPSULE PO SCH (08:53)
[2023-03-17] MEDS: DIVALPROEX 250MG *ER* TAB PO SCH ×2 (08:53→20:11)
[2023-03-17] MEDS: NICOTINE 14 MG/24 HR TRANSDERMAL TD SCH (08:53)
[2023-03-17] MEDS: FOLIC ACID 1MG TAB PO SCH (08:54)
[2023-03-17] MEDS: MULTIVITAMINS/MINERALS THERAP 1 TAB PO SCH (08:54)
[2023-03-17] MEDS: diphenhydrAMINE 25MG CAP PO PRN (09:31)
[2023-03-17 13:57] VITALS: BP 101/62
[2023-03-17 14:00] VITALS: BP 101/62; TEMP 98.3; O2SAT 98
[2023-03-17] MEDS: NICOTINE POLACRILEX 2 MG GUM PO PRN (18:48)
[2023-03-17] MEDS: traZODone 50 MG TAB PO PRN (20:11)
[2023-03-18 06:40] VITALS: BP 105/56; TEMP 97.5; O2SAT 100
[2023-03-18] MEDS: VENLAFAXINE **XR** 75MG CAPSULE PO SCH (08:13)
[2023-03-18] MEDS: NICOTINE POLACRILEX 2 MG GUM PO PRN (08:13)
[2023-03-18] MEDS: DIVALPROEX 250MG *ER* TAB PO SCH (08:13)
[2023-03-18] MEDS: NALTREXONE 50 MG TAB PO SCH (08:13)
[2023-03-18] MEDS ORDERED: DEPA250T2 PO (09:53)
[2023-03-18] MEDS ORDERED: TRAZ-252 PO (09:53)
[2023-03-18] MEDS ORDERED: NICO2GUM PO (09:53)
[2023-03-18] MEDS ORDERED: VENL75CA47 PO (09:53)
[2023-03-18] MEDS ORDERED: NALT50TA4 PO (09:53)
== END 2023-03-18 11:34 | disposition home or self-care (01) | DRG 753 ==
LOC: M ED 01:27 → M ED INP 17:16 → M PSY 18:56
PROVIDERS: ADMIT Student in an Organized Health Care Education/Training Program; ATTEND Student in an Organized Health Care Education/Training Program
DX: F31.9 Bipolar disorder, unspecified (principal); F10.20 Alcohol dependence, uncomplicated; Z91.030 Bee allergy status; R45.851 Suicidal ideations; F12.20 Cannabis dependence, uncomplicated; F17.200 Nicotine dependence, unspecified, uncomplicated; Z91.51 Personal history of suicidal behavior

== ENCOUNTER 2023-04-06 00:57 | Inpatient (IN) | payer MEDICAID ==
[~2023-04-06] VITALS: Ht 175.3 cm; Wt 59.7 kg
[~2023-04-06 00:57] MED LIST changes: +DEPA250T2 PO; +NALT50TA4 PO; +NICO2GUM PO; +TRAZ-252 PO; +VENL75CA47 PO
[2023-04-06 01:36] LABS: HEMATOCRIT 45.5 % (36.0-47.0); HEMOGLOBIN 15.5 g/dl (12.0-15.5); MEAN CORPUSCULAR HEMOGLOBIN 32.4 pg (27.0-33.0); MEAN CORPUSCULAR HGB CONC 34.1 g/dl (32.0-36.5); PLATELET COUNT, AUTOMATED 234 10^3/uL (150-450); RED BLOOD COUNT 4.79 10^6/uL (4.00-5.40); WHITE BLOOD COUNT 7.2 10^3/uL (4.0-10.0)
[2023-04-06] MEDS ORDERED: VENL75CA47 PO (01:43)
[2023-04-06] MEDS ORDERED: TRAZ-252 PO (01:43)
[2023-04-06] MEDS ORDERED: DEPA250T2 PO (01:43)
[2023-04-06] MEDS ORDERED: NALT50TA4 PO (01:43)
[2023-04-06] MEDS ORDERED: HOME MED LIST COMPLETE! XX SCH (01:45)
[2023-04-06 01:56] LABS: AMPHETAMINES LEVEL URINE NEGATIVE (NEGATIVE); BARBITURATES URINE NEGATIVE (NEGATIVE); BENZODIAZEPINES URINE NEGATIVE (NEGATIVE); COCAINE METABOLITE URINE NEGATIVE (NEGATIVE); METHADONE URINE NEGATIVE (NEGATIVE); OPIATES URINE NEGATIVE (NEGATIVE); PHENCYCLIDINE URINE NEGATIVE (NEGATIVE)
[2023-04-06 02:00] LABS: CANNABINOIDS URINE POSITIVE (NEGATIVE)
[2023-04-06 02:01] LABS: ETHYL ALCOHOL (ETHANOL) 0.122 % (0.000-0.010)
[2023-04-06 02:03] LABS: ACETAMINOPHEN LEVEL < 2.0 UG/ML (10.0-20.0); ALBUMIN 4.7 G/DL (3.2-5.2); ALKALINE PHOSPHATASE 79 U/L (46-116); ALT/SGPT 13 U/L (7.0-40); AST/SGOT 10 U/L (<34); BILIRUBIN,DIRECT 0.2 MG/DL (<0.4); BILIRUBIN,TOTAL 0.6 MG/DL (0.3-1.2); BLOOD UREA NITROGEN 10 MG/DL (9-23); CALCIUM LEVEL 9.8 MG/DL (8.5-10.1); CARBON DIOXIDE LEVEL 29 MMOL/L (20-31); CHLORIDE LEVEL 101 MMOL/L (98-107); CREATININE FOR GFR 0.71 MG/DL (0.55-1.30); GLOMERULAR FILTRATION RATE > 60.0 (>60); GLUCOSE, FASTING 86 MG/DL (60-100); HCG, SERUM QUALITATIVE NEGATIVE (NEGATIVE); POTASSIUM SERUM 3.5 MMOL/L (3.5-5.1); SALICYLATE LEVEL < 3.0 MG/DL (<30); SODIUM LEVEL 139 MMOL/L (136-145); TOTAL PROTEIN 8.7 G/DL (5.7-8.2)
[2023-04-06] MEDS ORDERED: NS 1,000 ML IV ONE ×3 (02:10→05:50)
[2023-04-06 03:00] LABS: VENOUS BASE EXCESS -0.2 (-2.0-2.0); VENOUS HCO3 25.2 MMOL/L (23.0-27.0); VENOUS O2 SATURATION 98.3 % (60.0-80.0); VENOUS PARTIAL PRESSURE CO2 44.1 mmHg (38.0-50.0); VENOUS PARTIAL PRESSURE O2 128.9 mmHg (30.0-50.0); VENOUS PH 7.375 UNITS (7.330-7.430); VENOUS STANDARD HCO3 24.3 MMOL/L; VENOUS TOTAL CO2 26.6 MMOL/L (24.0-28.0)
[2023-04-06 03:31] LABS: ALBUMIN 3.3 G/DL (3.2-5.2); BILIRUBIN,DIRECT 0.2 MG/DL (<0.4); BILIRUBIN,TOTAL 0.4 MG/DL (0.3-1.2); TOTAL PROTEIN 6.3 G/DL (5.7-8.2)
[2023-04-06] MEDS ORDERED: ONDANSETRON 4MG 2ML VIAL IV ONE ×2 (03:40→05:50)
[2023-04-06] MEDS ORDERED: MULTIVITAMIN -ADULT INJECTION 10 ML, THIAMINE INJection 100 MG, FOLIC ACID 1 MG in NS 1... IV ONE (03:40)
[2023-04-06] MEDS ORDERED: KETOROLAC 30 MG/ML 1ML VIAL IV ONE (05:50)
[2023-04-06] MEDS ORDERED: ACETAMINOPHEN TAB 650MG DOSE (2X325MG) PO PRN (22:15)
[2023-04-06] MEDS ORDERED: diphenhydrAMINE 25MG CAP PO PRN (22:15)
[2023-04-06] MEDS ORDERED: MOM 30ML SUSPENSION UDC PO PRN (22:15)
[2023-04-06] MEDS ORDERED: traZODone 50 MG TAB PO PRN (22:15)
[2023-04-06] MEDS ORDERED: MAALOX 30 ML SUSP *UDC PO PRN (22:15)
[2023-04-06] MEDS ORDERED: IBUPROFEN 400MG TAB PO PRN (22:15)
[2023-04-07 00:56] VITALS: BP 98/60; TEMP 97.7; O2SAT 98
[2023-04-07 05:50] VITALS: BP 97/52; TEMP 97.7; O2SAT 98
[2023-04-07] MEDS: NALTREXONE 50 MG TAB PO SCH (09:59)
[2023-04-07] MEDS: DIVALPROEX 250MG *ER* TAB PO SCH ×2 (09:59→20:01)
[2023-04-07] MEDS: VENLAFAXINE **XR** 75MG CAPSULE PO SCH (09:59)
[2023-04-07 17:55] VITALS: BP 118/68; TEMP 98.4; O2SAT 100
[2023-04-07] MEDS: NICOTINE POLACRILEX 2 MG GUM PO PRN (18:13)
[2023-04-07] MEDS: traZODone 50 MG TAB PO PRN (20:01)
[2023-04-08] MEDS: NALTREXONE 50 MG TAB PO SCH (08:08)
[2023-04-08] MEDS: VENLAFAXINE **XR** 75MG CAPSULE PO SCH (08:08)
[2023-04-08] MEDS: DIVALPROEX 250MG *ER* TAB PO SCH (08:08)
[2023-04-08] MEDS: NICOTINE POLACRILEX 2 MG GUM PO PRN ×3 (08:09→18:10)
[2023-04-08 16:06] VITALS: BP 95/50; TEMP 97.5; O2SAT 99
[2023-04-08] MEDS: traZODone 50 MG TAB PO PRN (20:06)
[2023-04-08] MEDS: DIVALPROEX 500MG *ER* TAB PO SCH (20:06)
[2023-04-08] MEDS ORDERED: DIVALPROEX 500 MG TAB PO SCH (21:00)
[2023-04-09 06:08] VITALS: BP 96/50; TEMP 99.3; O2SAT 98
[2023-04-09] MEDS: VENLAFAXINE **XR** 75MG CAPSULE PO SCH (09:00)
[2023-04-09] MEDS: NALTREXONE 50 MG TAB PO SCH (09:00)
[2023-04-09] MEDS: NICOTINE POLACRILEX 2 MG GUM PO PRN ×3 (09:00→18:56)
[2023-04-09] MEDS: DIVALPROEX 250MG *ER* TAB PO SCH (09:00)
[2023-04-09] MEDS ORDERED: DIVALPROEX 250MG TAB PO SCH (09:00)
[2023-04-09 18:04] VITALS: BP 112/64; TEMP 96.8; O2SAT 99
[2023-04-09] MEDS: DIVALPROEX 500MG *ER* TAB PO SCH (20:42)
[2023-04-10 06:33] VITALS: BP 97/53; TEMP 99.3; O2SAT 98
[2023-04-10] MEDS: DIVALPROEX 250MG *ER* TAB PO SCH (08:05)
[2023-04-10] MEDS: NALTREXONE 50 MG TAB PO SCH (08:05)
[2023-04-10] MEDS: VENLAFAXINE **XR** 75MG CAPSULE PO SCH (08:05)
[2023-04-10] MEDS: NICOTINE POLACRILEX 2 MG GUM PO PRN (08:08)
[2023-04-10] MEDS ORDERED: VENL75CA47 PO (09:45)
[2023-04-10] MEDS ORDERED: DEPA500T2 PO (09:45)
[2023-04-10] MEDS ORDERED: DEPA250T2 PO (09:45)
[2023-04-10] MEDS ORDERED: NALT50TA4 PO (09:45)
== END 2023-04-10 12:02 | disposition home or self-care (01) | DRG 753 ==
LOC: EDBD 00:57 → M ED 00:57 → M ED INP 22:15 → M PSY 23:06
PROVIDERS: ADMIT Student in an Organized Health Care Education/Training Program; ATTEND Student in an Organized Health Care Education/Training Program
DX: F31.9 Bipolar disorder, unspecified (principal); F10.129 Alcohol abuse with intoxication, unspecified; Z91.030 Bee allergy status; Z63.0 Problems in relationship with spouse or partner; F12.10 Cannabis abuse, uncomplicated; Z63.5 Disruption of family by separation and divorce

== ENCOUNTER 2024-01-05 09:24 | Emergency (ER) | payer MEDICAID, OTHER ==
[~2024-01-05] VITALS: Ht 180.3 cm; Wt 55.3 kg
[~2024-01-05 09:24] MED LIST changes: +CEFD1CAP9 PO; -CEFD300C41 PO; +DEPA500T2 PO; +ONDA-282 PO; -ONDA4TAB6 PO
[2024-01-05 09:25] VITALS: BP 115/71; TEMP 98.2; O2SAT 95
== END 2024-01-05 13:48 | disposition left against medical advice (07) ==
LOC: M ED 09:24
DX: Z53.21 Procedure and treatment not carried out due to patient leaving prior to being seen by health care provider (principal)

== ENCOUNTER 2024-01-27 09:52 | Emergency (ER) | payer OTHER ==
[~2024-01-27] VITALS: Ht 180.3 cm; Wt 57.5 kg
[2024-01-27 12:25] VITALS: BP 91/57; TEMP 100.5; O2SAT 98
[2024-01-27] MEDS ORDERED: NS 1,000 ML IV ONE (12:40)
[2024-01-27] MEDS ORDERED: ACETAMINOPHEN 500 MG TAB PO ONE (12:40)
[2024-01-27] MEDS ORDERED: ONDANSETRON 4MG 2ML VIAL IV ONE (12:40)
[2024-01-27 13:29] LABS: ETHYL ALCOHOL (ETHANOL) < 0.003 % (0.000-0.010)
[2024-01-27 13:31] LABS: BLOOD UREA NITROGEN 7 MG/DL (9-23); CALCIUM LEVEL 8.3 MG/DL (8.5-10.1); CARBON DIOXIDE LEVEL 26 MMOL/L (20-31); CHLORIDE LEVEL 101 MMOL/L (98-107); CREATININE FOR GFR 0.47 MG/DL (0.55-1.30); GLOMERULAR FILTRATION RATE > 60.0 (>60); GLUCOSE, FASTING 85 MG/DL (60-100); POTASSIUM SERUM 3.7 MMOL/L (3.5-5.1); SALICYLATE LEVEL < 3.0 MG/DL (<30); SODIUM LEVEL 133 MMOL/L (136-145)
[2024-01-27 13:33] LABS: HCG, SERUM QUALITATIVE NEGATIVE (NEGATIVE)
== END 2024-01-27 13:00 | disposition left against medical advice (07) ==
LOC: M ED 09:52
DX: Z04.71 Encounter for examination and observation following alleged adult physical abuse (principal); F17.200 Nicotine dependence, unspecified, uncomplicated; Z91.030 Bee allergy status

== ENCOUNTER 2024-02-02 09:38 | Inpatient (IN) | payer OTHER ==
[~2024-02-02] VITALS: Ht 180.3 cm; Wt 60.0 kg
[2024-02-02 10:38] LABS: BASO # 0.1 10^3/uL (0.0-0.2); BASO % 0.7 % (0.0-1.0); EOS # 0.1 10^3/uL (0.0-0.5); EOS % 0.8 % (0.0-3.0); HEMATOCRIT 28.4 % (36.0-47.0); HEMOGLOBIN 9.1 g/dl (12.0-15.5); LYMPH # 2.1 10^3/uL (1.5-5.0); LYMPH % 20.8 % (24.0-44.0); MEAN CORPUSCULAR HEMOGLOBIN 27.5 pg (27.0-33.0); MEAN CORPUSCULAR VOLUME 85.8 fl (80.0-96.0); MONO # 0.9 10^3/uL (0.0-0.8); MONO % 8.6 % (2.0-8.0); NEUTROPHILS # 6.9 10^3/uL (1.5-8.5); NEUTROPHILS % 67.9 % (36.0-66.0); PLATELET COUNT, AUTOMATED 384 10^3/uL (150-450); RED BLOOD COUNT 3.31 10^6/uL (4.00-5.40); WHITE BLOOD COUNT 10.1 10^3/uL (4.0-10.0)
[2024-02-02 10:45] LABS: ERYTHROCYTE SEDIMENTATION RATE 106 mm/hr (0-20)
[2024-02-02] MEDS ORDERED: ISOVUE-370 76% 100ML VIAL As Ordered ONE (11:17)
[2024-02-02 11:18] LABS: BLOOD UREA NITROGEN < 5 MG/DL (9-23); CALCIUM LEVEL 8.2 MG/DL (8.5-10.1); CARBON DIOXIDE LEVEL 27 MMOL/L (20-31); CHLORIDE LEVEL 102 MMOL/L (98-107); CREATININE FOR GFR 0.44 MG/DL (0.55-1.30); GLOMERULAR FILTRATION RATE > 60.0 (>60); GLUCOSE, FASTING 98 MG/DL (60-100); POTASSIUM SERUM 4.7 MMOL/L (3.5-5.1); SODIUM LEVEL 135 MMOL/L (136-145)
[2024-02-02 11:36] LABS: HCG, SERUM QUALITATIVE NEGATIVE (NEGATIVE)
[2024-02-02] MEDS: KETOROLAC 30 MG/ML 1ML VIAL IV ONE (12:22)
[2024-02-02] MEDS: PIPERACILLIN/TAZOBACTAM SOD 4.5 GM in D5W MINI-BAG PLUS 50 ML IV ONE (12:50)
[2024-02-02] MEDS: VANCOMYCIN HCL 1,000 MG, VIAL MATE ADAPTER 1 EACH in NS 250 ML IV ONE (13:49)
[2024-02-02] MEDS ORDERED: HOME MED LIST COMPLETE! XX SCH (14:20)
[2024-02-02] MEDS ORDERED: ACETAMINOPHEN TAB 650MG DOSE (2X325MG) PO PRN (14:30)
[2024-02-02] MEDS ORDERED: ONDANSETRON 4MG 2ML VIAL IV PRN (14:35)
[2024-02-02] MEDS ORDERED: HYDROmorphone HCL 2MG/ML 1ML VIAL IV PRN (14:45)
[2024-02-02] MEDS ORDERED: LORazepam 2 MG TAB PO PRN (14:45)
[2024-02-02 15:00] LABS: ALBUMIN 1.7 G/DL (3.2-5.2); ALKALINE PHOSPHATASE 96 U/L (46-116); ALT/SGPT 16 U/L (7.0-40); AST/SGOT 35 U/L (<34); BILIRUBIN,DIRECT 0.2 MG/DL (<0.4); BILIRUBIN,TOTAL 0.4 MG/DL (0.3-1.2); TOTAL PROTEIN 7.7 G/DL (5.7-8.2)
[2024-02-02] MEDS: THIAMINE 100 MG TAB PO SCH (15:06)
[2024-02-02] MEDS: NS 1,000 ML IV ONE (15:06)
[2024-02-02] MEDS: MULTIVITAMINS/MINERALS THERAP 1 TAB PO SCH (15:06)
[2024-02-02 15:07] LABS: PROCALCITONIN 0.21 ng/ml
[2024-02-02] MEDS: NS 1,000 ML IV SCH (15:07)
[2024-02-02] MEDS: PANTOPRAZOLE 40MG TAB (PROTONIX) PO SCH (15:12)
[2024-02-02] MEDS: FOLIC ACID 1MG TAB PO SCH (15:30)
[2024-02-02] MEDS ORDERED: LIDOCAINE 1% MDV 20ML VIAL As Ordered ONE (15:37)
[2024-02-02 15:57] LABS: BARBITURATES URINE NEGATIVE (NEGATIVE); BENZODIAZEPINES URINE NEGATIVE (NEGATIVE); CANNABINOIDS URINE NEGATIVE (NEGATIVE); COCAINE METABOLITE URINE NEGATIVE (NEGATIVE); METHADONE URINE NEGATIVE (NEGATIVE); OPIATES URINE NEGATIVE (NEGATIVE); PHENCYCLIDINE URINE NEGATIVE (NEGATIVE)
[2024-02-02 15:59] LABS: AMPHETAMINES LEVEL URINE POSITIVE (NEGATIVE)
[2024-02-02] MEDS: HYDROMORPHONE HCL 0.5 MG/ 0.5 ML SYRINGE IV PRN (18:21)
[2024-02-02 18:35] LABS: SOURCE, BODY FLUID TOT PROTEIN PLEURAL; TOTAL PROTEIN, BODY FLUID 2.9 G/DL (NOT ESTABLISHED)
[2024-02-02 18:44] LABS: LDH, BODY FLUID > 4200 U/L (NOT ESTABLISHED); SOURCE, BODY FLUID LDH PLEURAL
[2024-02-02 18:49] LABS: APPEARANCE, BODY FLUID TURBID (CLEAR); PLEURAL FL COLOR PALE YELLOW (COLORLESS); SOURCE, BODY FLUID PLEURAL
[2024-02-02 18:59] LABS: PH BODY FLUID > 7.800 UNITS (NOT ESTABLISHED); SOURCE, BODY FLUID pH PLEURAL
[2024-02-02] MEDS: PIPERACILLIN/TAZOBACTAM SOD 4.5 GM in D5W MINI-BAG PLUS 50 ML IV SCH (20:20)
[2024-02-02 21:06] VITALS: BP 90/55; TEMP 97.8; O2SAT 96
[2024-02-02] MEDS: VANCOMYCIN HCL 1,000 MG, VIAL MATE ADAPTER 1 EACH in D5W 250 ML IV SCH (21:10)
[2024-02-02] MEDS: ENOXAPARIN 40MG/0.4ML SYRINGE (J1650 PER 10MG) SC SCH (21:12)
[2024-02-02 22:00] VITALS: BP 84/55; O2SAT 97
[2024-02-02 23:00] VITALS: BP 81/51; O2SAT 94
[2024-02-03] VITALS (40 sets, daily range): BP systolic 70–109; BP diastolic 33–72; TEMP 97.1–98.2; O2SAT 94–99
[2024-02-03] MEDS: NS 1,000 ML IV ONE ×2 (01:20→18:42)
[2024-02-03] MEDS: KETOROLAC 30 MG/ML 1ML VIAL IV PRN (01:22)
[2024-02-03] MEDS ORDERED: NOREPINEPHRINE 4MG IN D5 250ML 4 MG in IV 1 EA IV SCH (02:40)
[2024-02-03 04:56] LABS: HEMATOCRIT 26.6 % (36.0-47.0); HEMOGLOBIN 8.2 g/dl (12.0-15.5); MEAN CORPUSCULAR HEMOGLOBIN 27.2 pg (27.0-33.0); MEAN CORPUSCULAR HGB CONC 30.8 g/dl (32.0-36.5); MEAN CORPUSCULAR VOLUME 88.1 fl (80.0-96.0); PLATELET COUNT, AUTOMATED 328 10^3/uL (150-450); RED BLOOD COUNT 3.02 10^6/uL (4.00-5.40); WHITE BLOOD COUNT 6.3 10^3/uL (4.0-10.0)
[2024-02-03 05:24] LABS: PROCALCITONIN 0.18 ng/ml
[2024-02-03 05:25] LABS: ALBUMIN 1.2 G/DL (3.2-5.2); ALKALINE PHOSPHATASE 74 U/L (46-116); ALT/SGPT 12 U/L (7.0-40); AST/SGOT 22 U/L (<34); BILIRUBIN,TOTAL 0.2 MG/DL (0.3-1.2); BLOOD UREA NITROGEN 7 MG/DL (9-23); CALCIUM LEVEL 7.8 MG/DL (8.5-10.1); CARBON DIOXIDE LEVEL 24 MMOL/L (20-31); CHLORIDE LEVEL 110 MMOL/L (98-107); CREATININE FOR GFR 0.55 MG/DL (0.55-1.30); GLOMERULAR FILTRATION RATE > 60.0 (>60); GLUCOSE, FASTING 128 MG/DL (60-100); POTASSIUM SERUM 3.8 MMOL/L (3.5-5.1); SODIUM LEVEL 138 MMOL/L (136-145); TOTAL PROTEIN 5.9 G/DL (5.7-8.2)
[2024-02-03] MEDS: oxyCODONE 5MG TAB PO PRN (05:55)
[2024-02-03] MEDS: HYDROmorphone HCL 2MG/ML 1ML VIAL IV PRN (09:10)
[2024-02-03] MEDS: CLINDAMYCIN 600 MG in IV 1 EA IV ONE (10:05)
[2024-02-03] MEDS: VANCOMYCIN HCL 750 MG, VIAL MATE ADAPTER 1 EACH in D5W 250 ML IV SCH (12:06)
[2024-02-03] MEDS: KETOROLAC 30 MG/ML 1ML VIAL IV SCH (13:27)
[2024-02-03] MEDS: NS 1,000 ML IV STA (16:36)
[2024-02-03] MEDS: HYDROMORPHONE HCL 0.5 MG/ 0.5 ML SYRINGE IV PRN (18:10)
[2024-02-03] MEDS: ACETAMINOPHEN *IV* 1,000 MG in IV 1 EA IV ONE (18:11)
[2024-02-03] MEDS: KETOROLAC 30 MG/ML 1ML VIAL IV ONE (18:11)
[2024-02-03] MEDS: NS 1,000 ML IV SCH (18:42)
[2024-02-04] VITALS (21 sets, daily range): BP systolic 81–103; BP diastolic 50–66; TEMP 97.3–98.4; O2SAT 95–99
[2024-02-04] MEDS: VANCOMYCIN HCL 1,000 MG, VIAL MATE ADAPTER 1 EACH in D5W 250 ML IV SCH (12:45)
[2024-02-04 14:28] LABS: BASO # 0.1 10^3/uL (0.0-0.2); BASO % 1.3 % (0.0-1.0); EOS # 0.2 10^3/uL (0.0-0.5); EOS % 2.2 % (0.0-3.0); HEMATOCRIT 31.8 % (36.0-47.0); HEMOGLOBIN 9.8 g/dl (12.0-15.5); LYMPH # 2.4 10^3/uL (1.5-5.0); LYMPH % 35.3 % (24.0-44.0); MEAN CORPUSCULAR HEMOGLOBIN 27.3 pg (27.0-33.0); MEAN CORPUSCULAR HGB CONC 30.8 g/dl (32.0-36.5); MEAN CORPUSCULAR VOLUME 88.6 fl (80.0-96.0); MONO # 0.4 10^3/uL (0.0-0.8); NEUTROPHILS # 3.5 10^3/uL (1.5-8.5); NEUTROPHILS % 51.8 % (36.0-66.0); PLATELET COUNT, AUTOMATED 436 10^3/uL (150-450); RED BLOOD COUNT 3.59 10^6/uL (4.00-5.40); WHITE BLOOD COUNT 6.8 10^3/uL (4.0-10.0)
[2024-02-04 14:57] LABS: BLOOD UREA NITROGEN < 5 MG/DL (9-23); CALCIUM LEVEL 7.8 MG/DL (8.5-10.1); CARBON DIOXIDE LEVEL 23 MMOL/L (20-31); CHLORIDE LEVEL 108 MMOL/L (98-107); GLOMERULAR FILTRATION RATE > 60.0 (>60); GLUCOSE, FASTING 106 MG/DL (60-100); MAGNESIUM LEVEL 1.8 MG/DL (1.8-2.4); POTASSIUM SERUM 4.1 MMOL/L (3.5-5.1); SODIUM LEVEL 136 MMOL/L (136-145)
[2024-02-04 16:46] LABS: HEPATITIS B SURFACE ANTIGEN NEGATIVE (NEGATIVE)
[2024-02-04 16:59] LABS: HIV 1&2 SCREEN NEGATIVE (NEGATIVE)
[2024-02-04 17:32] LABS: HEPATITIS C VIRUS ABY INDEX > 11.00 INDEX (<0.8)
[2024-02-04] MEDS: NS 1,000 ML IV SCH (18:14)
[2024-02-05 04:05] VITALS: BP 112/60; TEMP 98.1; O2SAT 97
[2024-02-05 05:03] LABS: HEMATOCRIT 28.7 % (36.0-47.0); HEMOGLOBIN 8.8 g/dl (12.0-15.5); MEAN CORPUSCULAR HEMOGLOBIN 27.2 pg (27.0-33.0); MEAN CORPUSCULAR HGB CONC 30.7 g/dl (32.0-36.5); MEAN CORPUSCULAR VOLUME 88.6 fl (80.0-96.0); PLATELET COUNT, AUTOMATED 416 10^3/uL (150-450); RED BLOOD COUNT 3.24 10^6/uL (4.00-5.40); WHITE BLOOD COUNT 5.6 10^3/uL (4.0-10.0)
[2024-02-05 07:39] VITALS: BP 92/51; TEMP 97.8; O2SAT 97
[2024-02-05] MEDS: LINEZOLID 600MG TABLET (ZYVOX) PO SCH (20:03)
[2024-02-05 20:06] VITALS: BP 90/56; TEMP 98.3; O2SAT 98
[2024-02-06 01:22] VITALS: BP 94/60; O2SAT 96
[2024-02-06 04:22] VITALS: BP 88/54; TEMP 98.3; O2SAT 96
[2024-02-06] MEDS ORDERED: oxyCODONE 5MG TAB PO PRN (07:35)
[2024-02-06] MEDS ORDERED: LINE1TAB6 PO (08:47)
[2024-02-06] MEDS ORDERED: THIA100TA PO (08:47)
[2024-02-06] MEDS ORDERED: FOLI1TAB11 PO (08:47)
[2024-02-06 10:48] LABS: HEPATITIS B CORE ANTIBODY IGG NON-REACTIVE (NON-REACTIVE); HEPATITIS B SURF AB QUANT 242 mIU/mL (> OR = 10)
[2024-02-06] MEDS ORDERED: BACT800T5 PO (15:08)
[2024-02-06] MEDS ORDERED: DOXY100C3 PO (15:08)
[2024-02-08 11:01] LABS: HCV RNA log10 5.17 Log IU/mL (NOT DETECTED)
== END 2024-02-06 09:17 | disposition home or self-care (01) | DRG 137 ==
LOC: EDBD 09:38 → M ED 09:38 → EEVIPCON 09:38 → M ED INP 14:29 → M ICU 20:56
PROVIDERS: ADMIT Preventive Medicine Undersea and Hyperbaric Medicine; ATTEND Preventive Medicine Undersea and Hyperbaric Medicine
PROC: B246ZZZ Ultrasonography of Right and Left Heart (ICD-10-PCS; 2024-02-02)
PROC: 0J9630Z Drainage of Chest Subcutaneous Tissue and Fascia with Drainage Device, Percutaneous Approach (ICD-10-PCS; principal; 2024-02-02 16:00)
PROC: 0W9930Z Drainage of Right Pleural Cavity with Drainage Device, Percutaneous Approach (ICD-10-PCS; 2024-02-03)
DX: J85.0 Gangrene and necrosis of lung (principal); R64 Cachexia; M60.011 Infective myositis, right shoulder; L02.213 Cutaneous abscess of chest wall; F15.10 Other stimulant abuse, uncomplicated; B95.61 Methicillin susceptible Staphylococcus aureus infection as the cause of diseases classified elsewhere; F11.10 Opioid abuse, uncomplicated; D64.9 Anemia, unspecified; B95.5 Unspecified streptococcus as the cause of diseases classified elsewhere; F32.9 Major depressive disorder, single episode, unspecified; B95.62 Methicillin resistant Staphylococcus aureus infection as the cause of diseases classified elsewhere; F41.9 Anxiety disorder, unspecified; Z68.1 Body mass index [BMI] 19.9 or less, adult; Z91.030 Bee allergy status; Z88.8 Allergy status to other drugs, medicaments and biological substances